=== PATIENT | female | born 1995 | race Caucasian/White ===

== ENCOUNTER → 2018-03-17 16:57 | Outpatient (CLI) | payer BC, SELFPAY ==
[2018-03-17 17:00] LABS: Adenovirus,PCR Not Detected (NotDetected); Bordetella Pertussis Not Detected (NotDetected); Chlamydophila Pneumoniae, PCR Not Detected (NotDetected); Coronavirus 229E Not Detected (NotDetected); Coronavirus NL63 Not Detected (NotDetected); Coronavirus OC43 Not Detected (NotDetected); Coronovirus HKU1,PCR Not Detected (NotDetected); Human Metapneumovirus Not Detected (NotDetected); Influenza A, PCR Not Detected (NotDetected); Influenza AH1, 2009 Not Detected (NotDetected); Influenza AH1, PCR Not Detected (NotDetected); Influenza AH3,PCR Not Detected (NotDetected); Influenza B, PCR Not Detected (NotDetected); Mycoplasma Pneumoniae, PCR Not Detected (NotDected); Parainfluenza 1, PCR Not Detected (NotDetected); Parainfluenza 2, PCR Not Detected (NotDetected); Parainfluenza 3, PCR Not Detected (NotDetected); Parainfluenza 4, PCR Not Detected (NotDetected); Respiratory Syncytial Virus Not Detected (NotDetected); Rhinovirus/Enterovirus Not Detected (NotDetected)
--- NOTE | 2018-03-17 17:13 | XR_ITS ---
XR chest 2V HISTORY: ITS.REASON: CHEST PAIN; LT. RIB PAIN; ACHES, SORE THROAT ORDERING PHYSICIAN: Emelina Joe PATIENT AGE: 22 years COMPARISON: FINDINGS: The cardiomediastinal silhouette and pulmonary vascularity are within normal limits. The lungs are clear without infiltrates, suspicious nodules, or pleural effusions. There is an azygos fissure is normal variant No acute bony abnormalities. IMPRESSION: Negative chest, no acute finding
--- NOTE | 2018-03-17 17:13 | XR_ITS ---
XR ribs LT min 3V w CXR1V HISTORY: Left-sided chest/rib pain ORDERING PHYSICIAN: Emelina Joe PATIENT AGE: 22 years Comparison: None FINDINGS: A frontal view of the chest shows no acute finding. Multiple views of the Left ribs were obtained. No fracture or dislocation. No lytic or blastic change. IMPRESSION: Negative RIBS. If pain persists, consider follow-up exam in 7-[address] with 3-D reformats.
[2018-03-17 17:22] LABS: Basophils % 0.1 % (0.1-2.0); Eosinophils # 0.1 K/mm3 (0.0-0.4); Eosinophils % 0.9 % (0.1-12.0); Hematocrit 39.8 % (37.0-47.0); Hemoglobin 12.1 g/dL (12.2-16.2); Lymphocytes # 0.8 K/mm3 (0.7-4.5); Lymphocytes % 8.6 K/mm3 (10-50); Mean Corpuscular HGB Conc 30.4 g/dL (31.8-35.4); Mean Corpuscular Hemoglobin 25.6 pg (27.0-31.2); Mean Platelet Volume 7.7 fl (7.4-10.4); Monocytes # 0.6 K/mm3 (0.1-1.0); Monocytes % 6.5 % (1.7-9.3); Neutrophils # 7.9 K/mm3 (1.8-7.8); Neutrophils % 83.8 % (37.0-80.0); Platelet Count 196 K/mm3 (142-424); Red Blood Count 4.73 M/mm3 (4.20-5.40); Red Cell Distribution Width 13.4 % (11.5-17.5); White Blood Count 9.4 K/mm3 (4.8-10.8)
[2018-03-17 17:57] LABS: D-Dimer 170 ng/mL (0-400)
[2018-03-17 20:20] LABS: Alanine Aminotransferase 17 U/L (12-78); Albumin Level 4.1 gm/dL (3.4-5.0); Blood Urea Nitrogen 14 mg/dL (7-18); Chloride 103 mmol/L (98-107); Glucose 92 mg/dL (74-106); Sodium 140 mmol/L (136-145)
[2018-03-17 20:22] LABS: Albumin/Globulin Ratio 1.2 (1.1-1.8); Alkaline Phosphatase 61 U/L (46-116); Anion Gap 16.2 mEq/L (5-15); Aspartate Amino Transferase 14 U/L (15-37); Bilirubin,Total 0.5 mg/dL (0.2-1.0); Calcium 8.9 mg/dL (8.5-10.1); Carbon Dioxide 25 mmol/L (21.0-32.0); Creatinine,Serum 0.85 mg/dL (0.55-1.02); Estimated Glomerular Filt Rate 84 ml/min (>60); GFR (African American) 101 ML/MIN (>60); Globulin 3.3 gm/dl (1.3-3.2); Potassium 4.2 mmoL/L (3.5-5.1); Total Protein,Serum 7.4 gm/dL (6.4-8.2); Troponin I < 0.02 ng/ml (0.00-0.06)
== END ==
PROVIDERS: Visit Provider Nurse Practitioner Family
DX: R07.9 Chest pain, unspecified (principal); R07.89 Other chest pain; J02.9 Acute pharyngitis, unspecified
CPT/HCPCS: 36415; 71046; 71101; 80053; 83880; 84484; 85025; 85378; 87486; 87581; 87633; 87798